=== PATIENT | female | born 1970 | race Caucasian/White ===

== ENCOUNTER 2016-10-09 14:07 | Emergency (ER) | payer OTHER ==
[~2016-10-09] VITALS: Ht 162.6 cm; Wt 56.7 kg
[~2016-10-09 14:07] MED LIST: ALBUTEROL2.5 MG/3 M INH/SOL; AMOXICILLIN875 M1 PO; LEVAQUIN500 M1 PO; NEBULIZER MACHINE; PROAIR HFA8.5 GM INH; SULFAMETHOXAZO1 EAC1 PO; SYMBICORT 16010.2 GM INH; ZOFRAN ODT4 M1 PO
--- NOTE | 2016-10-09 14:33 | ED INFLUENZA/URI COMPLAINT ---
History of Present Illness General Chief Complaint: Upper Respiratory Sx/Fever Stated Complaint: URI Source: patient Exam Limitations: no limitations Vital Signs & Intake/Output Vital Signs & Intake/Output Vital Signs Date Time Temp Pulse Resp B/P Pulse O2 O2 Flow FiO2 Ox Delivery Rate 10/09 1452 Room Air Room Air 10/09 1451 97.5 10/09 1411 97.5 99 18 128/76 95 Room Air Allergies Coded Allergies: tree nut (Severe, ANAPHYLAXIS 08/28/16) acetaminophen (From TYLENOL) (Intermediate, RASH 08/11/16) Uncoded Allergies: CT CONTRAST (Severe, ANAPHYLAXIS 08/11/16) Triage Note: 46 Y/O BODY ACHES, NAUSEA AND "SWOLLEN GLANDS"; SYMPTOMS ONSET THIS AM. STATE SHE WENT TO BED FEELING "FINE". AFEBRILE. Triage Nurses Notes Reviewed? yes Onset: Gradual Duration: day(s): (1) Timing: remote history Severity: moderate Severity Numbers: 7 Prior Episodes/Possible Cause: occassional episodes No Modifying Factors: none HPI: Patient is a 46-year-old female presenting to the emergency department with chief complaint of body aches, malaise, tactile fevers and chills, nausea, sore throat and frontal headache going on for the past 24 hours. She reports that her son has an ear fraction and another one is getting over a GI bug. Denies any vomiting. She reports a few episodes of loose stool this morning, denies blood in stool. She took a dose of Tylenol this morning around 8 AM without relief. She did receive a flu vaccination this year. Denies any light sensitivity. No neck pain. (BABS PATEL) Reconcile Medications Amoxicillin 875 MG TABLET 1 TAB PO BID strep (JULY GALVAN MD) Past History Travel History Traveled to [place] past 21 day No Medical History Any Pertinent Medical History? 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 No (BABS PATEL) Review of Systems Review of Systems Constitutional: Reports: see HPI, chills, fever, malaise. Comments Review of systems: See HPI, All other systems negative. Constitutional, no weight loss HEENT: No visual changes no congestion Cardiovascular: No chest pain ,palpitation , orthopnea or ankle swelling Skin, no jaundice no rashes Respiratory: No dyspnea cough sputum or hemoptysis GI: no vomiting : No dysuria No hematuria Muscle skeletal: no neck pain, Neurologic: No numbness no confusion Psych: No stress anxiety or depression,. Heme/endocrine: No bruising no bleeding no polyuria or polydipsia Immunology: No splenectomy or history of AIDS (BABS PATEL) Physical Exam Physical Exam General Appearance: well developed/nourished, no apparent distress, alert, awake , comfortable Ears, Nose, Throat: pharyngeal erythema Comments: Well-developed well-nourished person in no acute distress HEENT: Pupils equally round and reactive to light and accommodation. Nose is atraumatic. External auditory canal and Tympanic membranes clear. Pharynx mildly erythematous, no exudate, clearing secretions without difficulty. No tonsillar enlargement.. No swelling or edema. Neck: Supple, mild cervical anterior lymphadenopathy, normal range of motion without pain or tenderness Back: Nontender Cardiovascular: Regular rate and rhythms no murmurs rubs or gallops, normal JVP Respiratory: Chest nontender. No respiratory distress.breath sounds clear to auscultation bilaterally Extremity: No edema Neuro: Alert oriented x3 Skin: No appreciable rash on exposed skin, skin is warm and dry. Psych: Mood and affect is normal, memory and judgment is normal. Core Measures Severe Sepsis Present: No Septic Shock Present: No (BABS PATEL) Progress Differential Diagnosis: influenza, pneumonia, pharyngitis, sinusitis, strep Plan of Care: Orders Procedure Date/time Status RAPID VIRAL INFLUENZA A 10/09 1432 Complete THROAT CULTURE W/QUICK STREP 10/09 1432 Complete Initial ED EKG: none (BABS PATEL) Departure Departure Time of Disposition: 1510 Disposition: HOME OR SELF CARE Condition: Stable Clinical Impression Primary Impression: Strep pharyngitis Referrals: TREVOR THEODORE MD (PCP/Family) Additional Instructions: Follow-up with a primary care physician call to make appointment. Increase fluids. Take amoxicillin as prescribed for strep throat. Take [id number] Motrin and Tylenol as directed. Return for worsening symptoms or concerns. Prescriptions were sent to [facility]. 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 I have also reviewed all the pertinent lab results and diagnostic results. I agree with the findings and the plan of care as documented in the PA's/SUPERVISOR COMPUTER OPERATIONS's documentation. x I have reviewed the ED Record and agree with the PA's/SUPERVISOR COMPUTER OPERATIONS's documentation. [] Additions or exceptions (if any) to the PAs/SUPERVISOR COMPUTER OPERATIONS's note and plan are summarized below: [] (COLE HINKLE,JULY)
[2016-10-09] MEDS ORDERED: AMOXICILLIN875 M1 PO (15:11)
[2016-10-09 15:28] VITALS: BP 120/72
== END 2016-10-09 15:28 ==
LOC: ERH 14:07
DX: J02.0 Streptococcal pharyngitis (principal)
CPT/HCPCS: 87804; 87804-59

== ENCOUNTER 2016-10-09 23:44 | Emergency (ER) | payer OTHER ==
[~2016-10-09] VITALS: Ht 162.6 cm; Wt 56.2 kg
[2016-10-09 23:48] VITALS: BP 112/76
--- NOTE | 2016-10-09 23:53 | ED GENERAL ADULT ---
History of Present Illness General Chief Complaint: Upper Respiratory Sx/Fever Stated Complaint: BODY ACHES, STREP? WAS SEEN FOR SAME, PER PT WORSE Source: patient, old records Exam Limitations: no limitations Vital Signs & Intake/Output Vital Signs & Intake/Output Vital Signs Date Time Temp Pulse Resp B/P Pulse O2 O2 Flow FiO2 Ox Delivery Rate 10/10 0148 99.0 10/09 2353 98 Room Air 10/09 2348 100.1 97 18 112/76 97 Room Air ED Intake and Output 10/10 0000 10/09 1200 Intake Total Output Total Balance Patient 124 lb Weight Allergies Coded Allergies: tree nut (Severe, ANAPHYLAXIS 08/28/16) acetaminophen (From TYLENOL) (Intermediate, RASH 08/11/16) Uncoded Allergies: CT CONTRAST (Severe, ANAPHYLAXIS 08/11/16) Reconcile Medications Amoxicillin 875 MG TABLET 1 TAB PO BID strep Triage Note: PT FROM HOME C/O STREP? PT STATES SHE WAS SEEN HERE EARLIER TO DAY AND DX WITH STREP AND GIVEN AMOXILLCIN. PT CALLLED PRIMARY AND STATED PT SHOULD COME BACK AND BE SEEN AND TESTED FOR EITHER PNEUMONIA OR MONO. PT STATES SHE HAS CHILLS AND EXTREMEMLY WEAK. Triage Nurses Notes Reviewed? yes HPI: Patient is a 46-year-old female presents complaining of cough, fevers, body aches, diarrhea. Patient began with fatigue approximately 2 days ago, today she awoke with sore throat. Sore throat is moderate to severe, worsens with swallowing. Patient was seen in the emergency department on 10/09/16 in the afternoon had a positive rapid strep test, a negative quick influenza swab and was discharged on amoxicillin. Patient reports that she took the amoxicillin one dose and called her primary doctor who instructed her to come to the emergency department to rule out pneumonia and [place] given her symptoms. Patient reports fever up to 104F. Associated diarrhea and dyspnea. Positive sick contacts at home, patient reports that her son has been sick recently. (LANI NGUYEN,BRYNN) Past History Travel History Traveled to [place] past 21 day No Medical History Any Pertinent Medical History? 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 No (BRYNN DE LEON) Review of Systems Review of Systems Constitutional: Reports: chills, fever, malaise, weakness. EENTM: Reports: throat pain. Respiratory: Reports: cough, short of breath. Cardiovascular: Denies: chest pain. GI: Reports: diarrhea, nausea. Denies: abdominal pain. Genitourinary: Reports: no symptoms. Musculoskeletal: Reports: back pain, muscle pain, neck pain. Skin: Reports: no symptoms. Neurological/Psychological: Reports: headache. Denies: numbness. Hematologic/Endocrine: Denies: bruising, bleeding. Immunologic/Allergic: Denies: splenectomy. (BRYNN DE LEON) Physical Exam Physical Exam General Appearance: well developed/nourished, alert, awake Head: atraumatic, normal appearance Eyes: Bilateral: normal appearance, PERRL, EOMI. Ears, Nose, Throat: hearing grossly normal, moist mucus membranes, normal tympanic membranes bilaterally. Minimal pharyngeal erythema. Neck: normal inspection, supple, full range of motion, bilateral anterior cervical lymphadenopathy, negative Kernig's or Brudzinski's signs Respiratory: no respiratory distress, mild diffuse expiratory wheezing Cardiovascular: regular rate/rhythm Gastrointestinal: soft Back: normal inspection, normal range of motion Extremities: normal inspection, normal capillary refill, normal range of motion Neurologic/Psych: no motor/sensory deficits, awake, alert, oriented x 3, normal mood/affect Skin: intact, normal color, warm/dry Lymphatic: no anterior cervical cady Core Measures ACS in differential dx? No CVA/TIA Diagnosis: No Severe Sepsis Present: No Septic Shock Present: No (BRYNN DE LEON) Progress Differential Diagnoses I considered the following diagnoses in my evaluation of the patient: influenza, viral syndrome, strep throat, pneumonia, sepsis, meningitis Initial ED EKG: none Hand-Off Endorsed To: BETTY HINKLE,MELLISA Mcnair Endorsed Time: 30 Pending: labs (BRYNN DE LEON) Plan of Care: Orders Procedure Date/time Status LACTIC ACID 10/10 306 Active XRY-CHEST XRAY, PA AND LATERAL 10/10 6 Active BLOOD CULTURE 10/10 6 Active LACTIC ACID 10/10 6 Active MONOSPOT 10/10 6 Active COMPREHENSIVE METABOLIC PANEL 10/10 6 Active CBC WITHOUT DIFFERENTIAL 10/10 6 Active Current Medications Sig/Ibeth Start time Last Medication Dose Stop Time Status Admin Sodium Chloride 1,000 ML BOLUS ONE 10/10 14 AC (Normal Saline 0.9%) 10/10 113 Microbiology 10/10 6 BLOOD: Blood Culture - ORD 10/10 6 BLOOD: Blood Culture - ORD Patient nontoxic appearing, no meningeal signs of exam. Signed out to Dr. Castanon with labs and chest x-ray pending. 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 I have also reviewed all the pertinent lab results and diagnostic results. I agree with the findings and the plan of care as documented in the PA's/METAL DRILLING MACHINE OPERATOR's documentation. [X] I have reviewed the ED Record and agree with the PA's/METAL DRILLING MACHINE OPERATOR's documentation. [] Additions or exceptions (if any) to the PAs/METAL DRILLING MACHINE OPERATOR's note and plan are summarized below: [] (BETTY HINKLE,MELLISA Mcnair) Critical Care Note Critical Care Note Critical Care Time: non-applicable (BRYNN DE LEON)
[2016-10-10 00:36] LABS: ABSOLUTE BASOPHIL COUNT 0 /CUMM (0.0-0.2); ABSOLUTE EOSINOPHIL COUNT 0 /CUMM (0.0-0.7); ABSOLUTE LYMPH COUNT 0.3 /CUMM (1.2-3.4); ABSOLUTE MONOCYTE COUNT 0.3 /CUMM (0.10-0.60); BASOPHIL % 0.4 % (0.0-2.0); EOSINOPHIL % 0.5 % (0-5); GRANULOCYTE % 91.6 % (42.2-75.2); HEMATOCRIT 35.7 % (37-47); MEAN CORPUSCULAR HGB 27.3 PG (27.0-31.0); MEAN CORPUSCULAR HGB CONC 34.3 G/DL (33.0-37.0); MEAN CORPUSCULAR VOLUME 79.6 FL (81.0-99.0); MEAN PLATELET VOLUME 7.5 FL (7.4-10.4); PLATELET COUNT 259 /CUMM (130-400); RBC DISTRIBUTION WIDTH 14.4 % (11.5-14.5); RED BLOOD CELL CT 4.49 /CUMM (4.20-5.40); WHITE BLOOD CELL COUNT 8.8 /CUMM (4.8-10.8)
--- NOTE | 2016-10-10 05:04 | RADIOLOGY REPORT ---
EXAMINATION: XR PORTABLE CHEST CLINICAL INFORMATION: Cough. Dyspnea. Fever. COMPARISON: 08/12/2016 TECHNIQUE: AP portable upright view of the chest FINDINGS: Lungs are clear. No consolidation, pneumothorax, or pleural effusion. Cardiac and mediastinal contours are normal. Pulmonary vasculature is unremarkable. Osseous structures are unremarkable. IMPRESSION: Normal chest radiograph
== END 2016-10-10 02:46 ==
LOC: ERH 23:44
PROVIDERS: Physician Assistant
DX: J02.0 Streptococcal pharyngitis (principal)
CPT/HCPCS: 1263; 87040; 96374; 96375; J1885; J2765

== ENCOUNTER 2016-11-29 08:33 | Emergency (ER) | payer OTHER ==
[~2016-11-29] VITALS: Ht 162.6 cm; Wt 58.1 kg
[2016-11-29 08:36] VITALS: BP 115/75
--- NOTE | 2016-11-29 09:08 | ED INFLUENZA/URI COMPLAINT ---
History of Present Illness General Chief Complaint: Upper Respiratory Sx/Fever Stated Complaint: URI Source: patient, old records Exam Limitations: no limitations Vital Signs & Intake/Output Vital Signs & Intake/Output Vital Signs Date Time Temp Pulse Resp B/P Pulse O2 O2 Flow FiO2 Ox Delivery Rate 11/29 0856 98 Room Air 11/29 0836 97.6 82 16 115/75 98 Room Air Allergies Coded Allergies: tree nut (Severe, ANAPHYLAXIS 08/28/16) acetaminophen (From TYLENOL) (Intermediate, RASH 08/11/16) Uncoded Allergies: CT CONTRAST (Severe, ANAPHYLAXIS 08/11/16) Reconcile Medications Amoxicillin 875 MG TABLET 1 TAB PO BID SINUSITIS Mometasone Furoate (Nasonex) 50 MCG SPRAY.PUMP 2 SPRAY NASB DAILY SINUS Triage Note: PT COMPLAINS OF ACHEY ALL OVER FOR ABOUT 1 WEEK, HOT COLD FLASHES, AFEBRILE AT TRIAGE, STATES THAT SHE CALLED OUT OF WORK TODAY DUE TO SHE JUST DOESN'T FEEL WELL Triage Nurses Notes Reviewed? yes HPI: Patient is a 46-year-old female presents complaining of myalgias, upper back pain, nasal congestion, bilateral ear pain, mild cough, fevers, chills. Symptoms 1 week. Patient has been taking vitamins with minimal improvement. Patient's primary doctor prescribed her doxycycline yesterday, she has not started taking this medication. Positive sick contacts at home with upper respiratory type symptoms. Fatigue is currently severe. Patient reports she gets dizzy with change of positions. Past History Travel History Traveled to [place] past 21 day No Medical History Any Pertinent Medical History? 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 No Review of Systems Review of Systems Constitutional: Reports: chills, fever, malaise, weakness. EENTM: Reports: ear pain, nasal congestion, throat pain. Respiratory: Reports: cough, short of breath. Cardiovascular: Denies: chest pain, syncope. GI: Reports: abdominal pain (yesterday, left upper quadrant), nausea. Genitourinary: Reports: no symptoms. Musculoskeletal: Reports: back pain, muscle pain. Skin: Reports: no symptoms. Neurological/Psychological: Reports: headache. Hematologic/Endocrine: Reports: no symptoms. Immunologic/Allergic: Reports: no symptoms. Physical Exam Physical Exam General Appearance: well developed/nourished, alert, awake Head: atraumatic, normal appearance Eyes: Bilateral: normal appearance, PERRL, EOMI. Ears, Nose, Throat: clear fluid posterior to bilateral tympanic membranes. Neck: normal inspection, supple, full range of motion Respiratory: normal breath sounds, chest non-tender, no respiratory distress, lungs clear Cardiovascular: regular rate/rhythm (no murmur) Gastrointestinal: soft, non-tender Back: normal inspection, normal range of motion Extremities: normal inspection, normal capillary refill, normal range of motion, no edema Neurologic/Psych: no motor/sensory deficits, awake, alert, oriented x 3, normal gait, normal mood/affect Skin: intact, normal color, warm/dry Lymphatic: no anterior cervical cady Core Measures Severe Sepsis Present: No Septic Shock Present: No Progress Differential Diagnosis: influenza, meningitis, otitis, pneumonia, pharyngitis, sinusitis Plan of Care: Orders Procedure Date/time Status EKG 11/29 947 Active RAPID VIRAL INFLUENZA A 11/29 914 Complete COMPREHENSIVE METABOLIC PANEL 11/29 914 Complete CBC WITHOUT DIFFERENTIAL 11/29 914 Complete Laboratory Tests 11/29/16 1020: Anion Gap 8, Estimated GFR > 60, BUN/Creatinine Ratio 18.6, Glucose 100 H, Calcium 9.4, Total Bilirubin 0.8, AST 29, ALT 30, Alkaline Phosphatase 68, Total Protein 7.4, Albumin 4.0, Globulin 3.4, Albumin/Globulin Ratio 1.2, CBC w Diff NO MAN DIFF REQ, RBC 4.79, MCV 79.6 L, MCH 26.8 L, RDW 14.1, MPV 7.3 L, Gran % 81.5 H, Lymphocytes % 10.0 L, Monocytes % 5.9, Eosinophils % 2.1, Basophils % 0.5, Absolute Granulocytes 5.9, Absolute Lymphocytes 0.7 L, Absolute Monocytes 0.4, Absolute Eosinophils 0.2, Absolute Basophils 0, PUBS MCHC 33.7 Microbiology 11/29 945 NASOPHARYN: Influenza Virus A & B Rapid Smear - COMP Results of x-ray and labs discussed with patient. Patient nontoxic-appearing, tolerating oral intake, ambulatory without respiratory distress. Patient appears stable for discharge with outpatient follow-up. (LANI NGUYEN,BRYNN) Diagnostic Imaging: Viewed by Me: Radiology Read. Discussed w/RAD: Radiology Read. Radiology Impression: PATIENT: EVELYNE MARTINEZ PRESENT AGE: 46 PATIENT ACCOUNT NO: [id number] : 70 LOCATION: [facility] ORDERING PHYSICIAN: BRYNN NGUYEN SERVICE DATE: 11/29/16 EXAM TYPE: RAD - XRY-CHEST XRAY, PA AND LATERAL EXAMINATION: XR CHEST CLINICAL INFORMATION: Cough, fever and malaise COMPARISON: 10/10/2016 TECHNIQUE: 2 views of the chest were obtained. FINDINGS: Lungs are well expanded and clear. Trachea is midline in position. There is no pulmonary consolidation or pleural effusion. Cardiac silhouette is normal size. Mediastinal and hilar contours are normal. The visualized osseous structures are intact. IMPRESSION: No acute cardiopulmonary disease. DICTATED BY: CARLOS ALBERTO SMALLS MD DATE/TIME DICTATED:1009 ANALYST PROGRAMMER:ANNEL DATE/TIME TRANSCRIBED:11/29/161009 CONFIDENTIAL, DO NOT COPY WITHOUT APPROPRIATE AUTHORIZATION. <Electronically signed in Other Vendor System> SIGNED BY: CARLOS ALBERTO SMALLS MD 11/29/16 101 Initial ED EKG: none Departure Departure Disposition: HOME OR SELF CARE Condition: Stable Clinical Impression Primary Impression: Sinusitis Qualifiers: Sinusitis location: unspecified location Chronicity: acute Recurrence: not specified as recurrent Qualified Code: J01.90 - Acute sinusitis, unspecified Referrals: TREVOR THEODORE MD (PCP/Family) Additional Instructions: Follow-up with her primary care doctor within 1 week for further evaluation. Departure Forms: Customer Survey General Discharge Information Prescriptions: Current Visit Scripts Amoxicillin 1 TAB PO BID #20 TAB Mometasone Furoate (Nasonex) 2 SPRAY NASB DAILY #1 INHAL
--- NOTE | 2016-11-29 10:15 | RADIOLOGY REPORT ---
EXAMINATION: XR CHEST CLINICAL INFORMATION: Cough, fever and malaise COMPARISON: 10/10/2016 TECHNIQUE: 2 views of the chest were obtained. FINDINGS: Lungs are well expanded and clear. Trachea is midline in position. There is no pulmonary consolidation or pleural effusion. Cardiac silhouette is normal size. Mediastinal and hilar contours are normal. The visualized osseous structures are intact. IMPRESSION: No acute cardiopulmonary disease.
[2016-11-29 10:30] LABS: ABSOLUTE BASOPHIL COUNT 0 /CUMM (0.0-0.2); ABSOLUTE EOSINOPHIL COUNT 0.2 /CUMM (0.0-0.7); ABSOLUTE GRANULOCYTE CT 5.9 /CUMM (1.4-6.5); ABSOLUTE LYMPH COUNT 0.7 /CUMM (1.2-3.4); ABSOLUTE MONOCYTE COUNT 0.4 /CUMM (0.10-0.60); BASOPHIL % 0.5 % (0.0-2.0); EOSINOPHIL % 2.1 % (0-5); GRANULOCYTE % 81.5 % (42.2-75.2); HEMATOCRIT 38.1 % (37-47); MEAN CORPUSCULAR HGB 26.8 PG (27.0-31.0); MEAN CORPUSCULAR HGB CONC 33.7 G/DL (33.0-37.0); MEAN CORPUSCULAR VOLUME 79.6 FL (81.0-99.0); MEAN PLATELET VOLUME 7.3 FL (7.4-10.4); PLATELET COUNT 321 /CUMM (130-400); RBC DISTRIBUTION WIDTH 14.1 % (11.5-14.5); RED BLOOD CELL CT 4.79 /CUMM (4.20-5.40); WHITE BLOOD CELL COUNT 7.3 /CUMM (4.8-10.8)
[2016-11-29] MEDS ORDERED: NASONEX17 GM NASB (10:51)
[2016-11-29] MEDS ORDERED: AMOXICILLIN875 M1 PO (10:51)
== END 2016-11-29 11:54 ==
LOC: ERH 08:33
PROVIDERS: Physician Assistant
DX: J32.9 Chronic sinusitis, unspecified (principal); M54.6 Pain in thoracic spine; R50.9 Fever, unspecified; R42 Dizziness and giddiness
CPT/HCPCS: 87804; 87804-59